=== PATIENT | male | born 1955 | race Caucasian/White ===

== ENCOUNTER 2021-02-10 17:44 | Emergency (ER) | payer MEDICAID ==
[~2021-02-10] VITALS: Ht 180.3 cm; Wt 90.7 kg
[2021-02-10 18:06] VITALS: BP 117/77
== END 2021-02-11 05:24 | disposition left against medical advice (07) ==
LOC: ER 17:44
DX: R10.9 Unspecified abdominal pain (principal); R07.9 Chest pain, unspecified; Z53.21 Procedure and treatment not carried out due to patient leaving prior to being seen by health care provider